=== PATIENT | female | born 1935 | race Caucasian/White ===

== ENCOUNTER 2017-06-02 08:01 | Emergency (ER) | payer MEDICARE ==
--- NOTE | 2017-06-02 08:47 | RAD ---
FRONTAL AND LATERAL IMAGING OF THE CHEST: DATE: 06/02/17. COMPARISON: None. HISTORY: Cough. FINDINGS: Bilateral costophrenic angles are incompletely imaged on this examination. The lung parenchyma demon strates diffuse mild increased interstitial density. The lungs are hyperinflated suggesting air trap ping. No large volume pleural effusion. No pneumothorax, lobar consolidation, or alveolar edema. IMPRESSION: Interstitial prominence and pulmonary hyperinflation. No lobar consolidation or alveolar edema. Cos tophrenic angles are not fully imaged on frontal imaging. POS: [facility]
[2017-06-02 09:11] LABS: ALT (SGPT) 47 U/L (8-55); AST (SGOT) 60 U/L (5-34); Albumin 4.1 g/dL (3.4-4.8); Alkaline Phosphatase 84 U/L (40-150); Anion Gap 17 mmol/L (10-20); BUN (Urea Nitrogen) 17 mg/dL (9.8-20.1); Bilirubin, Total 0.5 mg/dL (0.2-1.2); Calc. Creatinine Clearance 0 mL/min (70-130); Calcium 9.7 mg/dL (7.8-10.44); Carbon Dioxide 24 mmol/L (23-31); Chloride 102 mmol/L (98-107); Estimated GFR-MDRD 56; Globulin 2.6 g/dL (2.4-3.5); Glucose 115 mg/dL (83-110); Potassium 3.2 mmol/L (3.5-5.1); Protein, Total 6.7 g/dL (6.0-8.3); Sodium 140 mmol/L (136-145)
[2017-06-02 09:15] LABS: #Lymphocytes 1.1 thou/uL (1.20-3.40); #Monocytes 0.4 thou/uL (0.11-0.59); #Neutrophils 2.2 thou/uL (1.40-6.50); %Basophils 0.8 % (0.0-1.0); %Eosinophils 0.6 % (0.0-10.0); %Lymphocytes 28.7 % (21.0-51.0); %Monocytes 11.3 % (0.0-10.0); %Neutrophils 58.7 % (42.0-75.0); Hemoglobin 13.2 g/dL (12.0-16.0); Mean Corpuscular HGB CONC 33.2 g/dL (32.0-36.0); Mean Corpuscular Volume 90.2 fl (81.0-99.0); Mean Platelet Volume 12.4 fL (7.4-10.4); PLT Morphology Comment Appears Decreased; Platelet Count 97 thou/uL (130-400); RBC Distribution Width 11.2 % (11.5-14.5); RBC Morphology Normal; Red Blood Cell (RBC) Count 4.42 mill/uL (4.20-5.40); White Blood Cell (WBC) Count 3.7 thou/uL (4.8-10.8)
[2017-06-02] MEDS ORDERED: Dexamethasone 20 MG/5 ML VIAL ONE (09:26)
[2017-06-02] MEDS ORDERED: Sodium Chloride 0.9% 100 ML ONE (09:26)
[2017-06-02] MEDS ORDERED: Sodium Chloride 0.9% 1,000 ML ONE (09:26)
[2017-06-02] MEDS ORDERED: Azithromycin 500 MG VIAL ONE (09:26)
== END 2017-06-02 10:08 | disposition home or self-care (01) ==
LOC: NAV ERS 08:01
DX: R05 Cough (principal); I10 Essential (primary) hypertension; I73.9 Peripheral vascular disease, unspecified; I49.3 Ventricular premature depolarization; F32.9 Major depressive disorder, single episode, unspecified; Z79.82 Long term (current) use of aspirin; Z79.899 Other long term (current) drug therapy
CPT/HCPCS: 36415; 71046; 80053; 85025; 94640; 96365; 96375; J0456; J1100; J7050; J7620